=== PATIENT | male | born 1960 | race Caucasian/White ===

== ENCOUNTER 2023-06-16 12:57 | Outpatient (RCR) | payer OTHER, SELFPAY ==
--- NOTE | 2023-06-16 13:52 | OPREHPOC ---
Outpatient Therapy Plan of Care This is a Multidisciplinary Plan of Care that may contain components documented by all disciplines (PT, OT, and ST.) PT Problem 1 PT Problem #1 Knowledge Deficit PT Goal 1 Goal 1. independent and compliant with HEP Target Visit 5 PT Problem 2 PT Problem #2 Pain PT Goal 1 Goal 1. decrease pain at worst to 2/10 or less in the R knee Target Visit 10 PT Problem 3 PT Problem #3 Impaired Range of Motion PT Goal 1 Goal 1. 0-120 degrees active R knee mobility Target Visit 12 PT Problem 4 PT Problem #4 Impaired Strength PT Goal 1 Goal 1. improve R knee strength to 5/5 2. improve R hip flex strength to 4+/5 or better 3. improve R ankle DF to 5/5 Target Visit 10 PT Problem 5 PT Problem #5 Impaired Functional Mobil PT Goal 1 Goal 1. patient to ambulate on level surface with no AD and normal gait mechanics 2. patient to ambulate up and down steps with reciprocal mechanics 3. patient to kneel on the ground to the L knee to garden at home 4. LEFS to display 30% or less functional deficits Target Visit 10
--- NOTE | 2023-06-16 13:52 | PTOPEVAL1 ---
Assessment and note entered by JT File, PT Evaluation Information Assessment Status Evaluation Diagnosis s/p R TKA Onset 06/12/23 Subjective Information patient had R TKA surgery on 06/12/23. he reports since surgery he has had pain in the R knee. he reports the pain is different than it was prior to surgery. he reports prior to surgery, he was having so much pain he was altering his gait and having increased pain in the hip from the bad knee . he reports prior to surgery, he was limping, but had no AD. Reported Pain Level Pain Score 5: Self Report Assessment PT Clinical Summary mr. santo is a 62 yo man who presents to skilled PT evaluation s/p R TKA. he presents today with jt swelling, pain, decreased rom, weakness, and abnormal gait mechanics. he would like to get back to leisure/recreational activities of gardening and golfing. continued skilled PT is indicated to improve his objective/functional deficits and return to his prior level functional activity performance/quality of life. Plan of Care Interventions Hot Pack/Cold Pack,Intermittent Compression,Manual Therapy,Neuro Re-education,Patient/Caregiver Educati,Therapeutic Activities,Therapeutic Exercise PT Services Indicated Yes Treatment Frequency and 2x weekly for 10 visits Duration These treatments will address the objective and functional deficits as defined above. The patient will be advanced safely and appropriately in order for the patient to progress towards his/her prior level of function. Additional exercises will be introduced and as well as a comprehensive home exercise program upon discharge, if needed, ?to ensure carryover of functional gains achieved in the clinic. This treatment plan has been reviewed and agreement upon by the patient.
--- NOTE | 2023-06-21 13:15 | PCPTNOTE ---
Spoke with Niharika at Dr. Batres's office regarding patient's swelling and calf pain. She reports patient called with concerns of increased pain. Niharika reports a dopler was ordered and will be performed today.
--- NOTE | 2023-06-29 10:07 | PCPTNOTE ---
Patient cancelled session due to illness.
--- NOTE | 2023-07-06 16:07 | PCPTNOTE ---
patient cancelled due to not feeling well from meds
--- NOTE | 2023-07-13 07:07 | PCPTNOTE ---
Patient cancelled session today. Patient states that he will not be back in time from another commitment.
== END 2023-07-10 20:00 | disposition home or self-care (01) ==
LOC: CHSPT 12:57
PROVIDERS: Visit Provider Orthopaedic Surgery
DX: M17.11 Unilateral primary osteoarthritis, right knee (principal); Z96.651 Presence of right artificial knee joint
CPT/HCPCS: 97014; 97016; 97110; 97161; G0283

== ENCOUNTER 2024-02-19 13:02 | Outpatient (NON) | payer OTHER, SELFPAY | END 2024-02-19 13:03 | disposition home or self-care (01) | PROVIDERS: PCP Nurse Practitioner Family; Visit Provider Nurse Practitioner Family | DX: M75.92 Shoulder lesion, unspecified, left shoulder (principal) | CPT/HCPCS: 87070; 87075; 87101; 87181; 87205 ==

== ENCOUNTER 2024-03-11 16:01 | Outpatient (CLI) | payer OTHER, SELFPAY ==
--- NOTE | ~2024-03-11 | XR_ITS ---
Clinical Indication: Shortness of breath PA and lateral views of the chest: Comparison: None Findings: The lungs are clear, without evidence of focal consolidation or pleural effusion. Cardiome diastinal silhouette is upper limits of normal in size. Bones and soft tissues are unremarkable. Impression: Clear lungs. Reviewed, dictated and finalized at location . [facility] THERAPIST TECHNICIAN Impression: Clear lungs.
== END 2024-03-11 16:02 | disposition home or self-care (01) ==
PROVIDERS: PCP Nurse Practitioner Family; Visit Provider Nurse Practitioner Family
DX: R06.02 Shortness of breath (principal)
CPT/HCPCS: 71046

== ENCOUNTER 2025-03-25 11:01 | Outpatient (CLI) | payer OTHER, SELFPAY ==
--- NOTE | ~2025-03-25 | US_ITS ---
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 Comparison: None Technique: Hawley-scale and color Doppler images were obtained. Findings: Correlating with the palpable area there is a complex solid and cystic focus measuring 4.3 x 3 x 1 cm, no increased flow. IMPRESSION: Possible hematoma. Other etiologies not excluded. Follow-up is recommended to assess resolution Reviewed, dictated and finalized at location P. E REPAIR SUPERVISOR IMPRESSION: Possible hematoma. Other etiologies not excluded. Follow-up is momo mmended to assess resolution
== END 2025-03-25 11:02 | disposition home or self-care (01) ==
PROVIDERS: PCP Nurse Practitioner Family; Visit Provider Nurse Practitioner Family
DX: R22.41 Localized swelling, mass and lump, right lower limb (principal)
CPT/HCPCS: 76882